=== PATIENT | male | born 1975 | race Caucasian/White ===

== ENCOUNTER 2025-07-24 18:41 | Emergency (ER) | payer BC ==
[~2025-07-24] VITALS: Ht 172.7 cm; Wt 102.1 kg
[~2025-07-24 18:41] MED LIST: ADVAIR 250/501 EA INH; NAPROSYN500 MG PO; NORCO 325 MG-51 TAB PO; SIMVASTATIN20 MG PO
[2025-07-24] MEDS ORDERED: VIBRAMYCIN100 MG PO (19:10)
== END 2025-07-24 19:28 | disposition home or self-care (01) ==
LOC: ED 18:41
DX: S30.861A Insect bite (nonvenomous) of abdominal wall, initial encounter (principal); J45.909 Unspecified asthma, uncomplicated; W57.XXXA Bitten or stung by nonvenomous insect and other nonvenomous arthropods, initial encounter; Y93.89 Activity, other specified; Y92.89 Other specified places as the place of occurrence of the external cause; Y99.8 Other external cause status